=== PATIENT | male | born 1945 | race Caucasian/White ===

== ENCOUNTER 2016-12-11 08:55 | Inpatient (IN) | payer MEDICARE, OTHER ==
[~2016-12-11] VITALS: Ht 182.9 cm; Wt 135.4 kg
[2016-12-11] MEDS ORDERED: ZETI10TA5 PO (09:12)
[2016-12-11] MEDS ORDERED: CLOP75TA PO (09:12)
[2016-12-11] MEDS ORDERED: SPIR25TA PO (09:12)
[2016-12-11] MEDS ORDERED: METO25TA3 PO (09:12)
[2016-12-11] MEDS ORDERED: ASPI1TAB69 PO (09:20)
[2016-12-21] MEDS: LACTATED RINGER'S 1000 ML IV SCH (06:00)
[2016-12-21 06:04] VITALS: BP 163/97; PULSE 79; RESP 20; TEMP 97.5; O2SAT 94
[2016-12-21] MEDS ORDERED: METOPROLOL TARTRATE 25 MG TAB PO PRN (06:15)
[2016-12-21] MEDS ORDERED: INSULIN HUMAN REGULAR 1,000 UNITS/10 ML VIAL SQ PRN (06:15)
[2016-12-21] MEDS: SODIUM CHLORID 0.9% 500 ML IV SCH ×2 (06:15→22:55)
[2016-12-21] MEDS ORDERED: FAMOTIDINE 20 MG/2 ML VIAL ONE (06:36)
[2016-12-21] MEDS ORDERED: MIDAZOLAM HCL 2 MG/2 ML VIAL ONE (06:36)
[2016-12-21] MEDS ORDERED: DEXAMETHASONE SOD PHOS 4 MG/ML VIAL ONE (06:36)
[2016-12-21] MEDS ORDERED: METOCLOPRAMIDE HCL 10 MG/2 ML VIAL ONE (06:37)
[2016-12-21] MEDS ORDERED: ACETAMINOPHEN 1000 MG/100 ML VIAL IV ONE (06:37)
[2016-12-21] MEDS ORDERED: SODIUM CHLORIDE 0.9% IV SCH ×2 (06:45→09:00)
[2016-12-21] MEDS ORDERED: CHLORHEXIDINE GLUCONATE 4% SOLN 120 ML BTL TOP SCH (06:45)
[2016-12-21] MEDS ORDERED: ceFAZolin 2 GM PREMIX 50 ML IV SCH (06:45)
[2016-12-21] MEDS ORDERED: TRANEXAMIC ACID IV SCH ×2 (06:45→09:00)
[2016-12-21] MEDS ORDERED: TRANEXAMIC ACID INJ 0 MG in SODIUM CHLORIDE 0.9% INJ 100 ML IV SCH (07:00)
[2016-12-21] MEDS ORDERED: Post-op Orders (for Pharmacy) MISC XX ONE (07:00)
[2016-12-21] MEDS ORDERED: MORPHINE SULFATE 8 MG/ML INJ IV PUSH PRN (07:00)
[2016-12-21] MEDS ORDERED: BISACODYL 10 MG SUPP PR PRN (07:00)
[2016-12-21] MEDS ORDERED: ONDANSETRON HCL 4 MG/2 ML VIAL IVP PRN (07:00)
[2016-12-21] MEDS ORDERED: ZOLPIDEM TARTRATE 5 MG TAB PO PRN (07:00)
[2016-12-21] MEDS ORDERED: MAGNESIUM HYDROXIDE SUSP 30 ML CUP PO PRN (07:00)
[2016-12-21] MEDS ORDERED: SODIUM CHLORIDE 0.9% FLUSH 5 ML FLUSH IVF PRN (07:00)
[2016-12-21] MEDS ORDERED: EXPAREL PERI-ARTICULAR INJECTION (TOTAL VOL. 60 ML) P-ARTICULR SCH ×2 (07:00)
[2016-12-21] MEDS ORDERED: ACETAMINOPHEN/HYDROcodone 325 MG/7.5 MG TAB PO PRN ×2 (07:00)
[2016-12-21] MEDS ORDERED: GENTAMICIN SULFATE 80 MG/2 ML VIAL IRRIGATION ONE (07:59)
[2016-12-21] MEDS: ASPIRIN EC 81 MG TABEC PO SCH ×2 (09:00→20:20)
[2016-12-21] MEDS: METOPROLOL TARTRATE 25 MG TAB PO SCH (09:00)
[2016-12-21] MEDS: EZETIMIBE 10 MG TAB PO SCH (09:00)
[2016-12-21] MEDS: SPIRONOLACTONE 25 MG TAB PO SCH (09:00)
[2016-12-21] MEDS: SODIUM CHLORIDE 0.9% FLUSH 5 ML FLUSH IVF SCH ×2 (09:00→20:22)
[2016-12-21] MEDS ORDERED: PROPOFOL 200 MG/20 ML AMP IV ONE (09:14)
[2016-12-21] MEDS ORDERED: LACTATED RINGER'S 1000 ML INJ 2,000 ML IV ONE (09:15)
[2016-12-21] MEDS ORDERED: ONDANSETRON HCL 4 MG/2 ML VIAL IV PUSH ONE (09:15)
[2016-12-21] MEDS ORDERED: DO NOT ADM ANY ANTICOAGULANT DRUGS XX PRN (10:00)
[2016-12-21] MEDS ORDERED: *morphine SULFATE 8 MG/ML PERIprocedure ONLY ONE ×2 (10:12→10:25)
[2016-12-21] MEDS: KETOROLAC TROMETHAMINE 30 MG/ML (IVP) VIAL IVP SCH ×3 (10:36→20:22)
[2016-12-21] MEDS: LACTATED RINGER'S 1000 ML INJ 1,000 ML IV SCH ×2 (10:45→19:30)
--- NOTE | 2016-12-21 11:00 | RADRPT ---
EXAM DATE/TIME: 12/21/2016 10:19 [facility] COMPARISON: No previous studies available for comparison. INDICATIONS : Left hip replacement. MEDICAL HISTORY : None. SURGICAL HISTORY : Coronary artery stent. ENCOUNTER: Initial ACUITY: 1 day PAIN SCORE: Non-responsive. LOCATION: Left hip. FINDINGS: The patient is status post a total hip arthroplasty with a bipolar prosthesis. Prosthesis is well-sea tamanna. Alignment is anatomic. A fracture is not appreciated. CONCLUSION: Anatomic alignment. Julian Light MD FACR Board Certified Radiologist. This report was verified electronically.
[2016-12-21 11:20] VITALS: BP 120/77; PULSE 98; RESP 18; TEMP 95.4; O2SAT 96
--- NOTE | 2016-12-21 12:38 | PD.CONS ---
HPI Service [facility] Consult Requested By Reason for Consult medical management Primary Care Physician Arsen Alvarado MD Diagnoses: History of Present Illness patient is a 71 y/o male with history of osteoarthritis who underwent left total hip arthroplasty today. at the time of my evaluation he was resting comfortably with no distress. pain to the left hip was moderate in intensity. he denies any chest pain, sob or nausea at the time of my evaluation. d/w the RN at the bedside. Review of Systems Constitutional: DENIES: Fever, Weight loss, Chills, Night Sweats Eyes: DENIES: Blurred vision, Diplopia, Vision loss, Double Vision Ears, nose, mouth, throat: DENIES: Tinnitus, Vertigo, Throat pain, Epistaxis Respiratory: DENIES: Apneas, Cough, Snoring, Wheezing, Hemoptysis, Sputum production, Shortness of breath Cardiovascular: DENIES: Chest pain, Palpitations, Syncope, Dyspnea on Exertion , PND, Lower Extremity Edema, Orthopnea, Claudication Gastrointestinal: DENIES: Abdominal pain, Black stools, Bloody stools, Constipation, Diarrhea, Nausea, Vomiting, Difficulty Swallowing, Anorexia Genitourinary: DENIES: Urinary frequency, Urgency, Hematuria, Dysuria Musculoskeletal: COMPLAINS OF: Joint pain (left hip.), DENIES: Muscle aches, Stiffness, Joint Swelling Integumentary: DENIES: Rash Neurologic: DENIES: Abnormal gait, Headache, Localized weakness, Paresthesias, Seizures, Speech Problems, Tremor, Poor Balance Psychiatric: DENIES: Anxiety, Confusion, Mood changes, Depression, Hallucinations, Agitation, Suicidal Ideation, Homicidal Ideation, Delusions Past Family Social History Allergies: Coded Allergies: Lipitor (Verified Adverse Reaction, Severe, muscle aches and liver function changes, 12/21/16) Past Medical History CAD osteoarthritis Past Surgical History cardiac stent placement hernia repair Reported Medications aspirin plavix zetia aldactone metoprolol Active Ordered Medications Current Medications Lactated Ringer's 1,000 ml @ 30 mls/hr Q24H IV Last administered on 12/21/16t 06:00; Start 12/21/16 at 06:15 Sodium Chloride (NS 500 ml Inj) 500 ml @ 30 mls/hr [id number] IV ; Start 12/21/16 at 06:15; Stop 12/22/16 at 06:14 Insulin Human Regular (NovoLIN R INJ) See Protocol Table ... UNSCH X1 PRN SQ SEE PROTOCOL; Start 12/21/16 at 06:15; Stop 12/22/16 at 06:14 Metoprolol Tartrate 25 mg 25 mg UNSCH X1 PRN PO SEE LABEL COMMENTS; Start 12/21 at 06:15; Stop 12/22/16 at 06:14 Bupivacaine Liposome/Sodium Chloride (Exparel Pf 1.3% Inj/NS Inj) 60 ml @ 120 mls/hr ONCE P-ARTICULR ; Start 12/21/16 at 07:00; Stop 12/21/16 at 13:00 Chlorhexidine Gluconate 1 applic 1 applic ONCE TOP ; Start 12/21/16 at 06:45; Stop 12/24/16 at 06:44 Cefazolin Sodium/ Dextrose 50 ml @ 100 mls/hr KETTLE HAND IV Last administered on 12/21/16t 07:13; Start 12/21/16 at 06:45; Stop 12/24/16 at 06:44 Tranexamic Acid 1283 mg/Sodium Chloride 112.83 ml @ 200 mls/ hr ONCE IV Last administered on 12/21/16 07:05; Start 12/21/16 at 06:45; Stop 12/22/16 at 06:44 Tranexamic Acid/ Sodium Chloride (Cyklokapron Inj/ NS Inj) 112.83 ml @ 200 mls / hr ONCE IV Last administered on 12/21/16t 10:15; Start 12/21/16 at 09:00; Stop 12/22/16 at 08:59 Famotidine (Pepcid Inj) 20 mg STK-MED ONCE .ROUTE ; Start 12/21/16 at 06:36; Stop 12/21/16 at 06:37; Status DC Midazolam HCl (Versed Inj) 2 mg STK-MED ONCE .ROUTE ; Start 12/21/16 at 06:36; Stop 12/21/16 at 06:37; Status DC Dexamethasone Sodium Phosphate (Decadron Inj) 4 mg STK-MED ONCE .ROUTE ; Start 12/21/16 at 06:36; Stop 12/21/16 at 06:37; Status DC Metoclopramide HCl (Reglan Inj) 10 mg STK-MED ONCE .ROUTE ; Start 12/21/16 at 06 :37; Stop 12/21/16 at 06:38; Status DC Acetaminophen 1000 mg 1,000 mg STK-MED ONCE IV ; Start 12/21/16 at 06:37; Stop 12/21/16 at 06:38; Status DC Lactated Ringer's (Lr 1000 ml Inj) 1,000 ml @ 80 mls/hr [id number] IV Last administered on 12/21/16 10:45; Start 12/21/16 at 07:00 IV Flush (NS Flush) 2 ml UNSCH PRN IVF FLUSH AFTER USING IV ACCESS; Start 12/21 at 07:00 IV Flush 2 ml 2 ml BID IVF ; Start 12/21/16 at 09:00 Cefazolin Sodium/ Sodium Chloride (Ancef Inj/NS Inj) 100 ml @ 200 mls/hr Q6H IV ; Start 12/21/16 at 13:00; Stop 12/22/16 at 01:29 Miscellaneous Information (Post-op Orders (for Pharmacy)) STAT ONCE XX ; Start 12/21/16 at 07:00; Stop 12/21/16 at 08:19; Status DC Morphine Sulfate (Morphine Inj) 4 mg Q3H PRN IV PUSH BREAKTHROUGH PAIN; Start 12/21/16 at 07:00 Acetaminophen/ Hydrocodone Bitart (Ashley 7.5-325 Mg) 1 tab Q4H PRN PO PAIN LESS THAN 5 ON SCALE; Start 12/21/16 at 07:00 Acetaminophen/ Hydrocodone Bitart (Ashley 7.5-325 Mg) 2 tab Q4H PRN PO PAIN SCALE 5 TO 10; Start 12/21/16 at 07:00 Ketorolac Tromethamine 15 mg 15 mg Q6H IVP Last administered on 12/21/16 10:36 ; Start 12/21/16 at 09:00; Stop 12/23/16 at 03:01 Tranexamic Acid/ Sodium Chloride (Cyklokapron Inj/ NS Inj) 100 ml @ 200 mls/hr UNSCH IV Last administered on 12/21/16 07:37; Start 12/21/16 at 07:00; Stop at 07:29; Status UNV Ondansetron HCl (Zofran Inj) 4 mg Q6H PRN IVP NAUSEA OR VOMITING; Start at 07:00 Docusate Sodium (Colace) 100 mg BID PO ; Start 12/22/16 at 21:00 Zolpidem Tartrate (Ambien) 5 mg HS PRN PO SLEEP; Start 12/21/16 at 07:00 Bisacodyl (Dulcolax Supp) 10 mg DAILY PRN SD CONSTIPATION; Start 12/21/16 at 07 :00 Magnesium Hydroxide (Milk Of Magnesia Liq) 30 ml DAILY PRN PO CONSTIPATION; Start 12/21/16 at 07:00 Aspirin (Ecotrin Ec) 81 mg BID PO ; Start 12/21/16 at 09:00 EZETIMIBE (Zetia) 10 mg DAILY PO ; Start 12/21/16 at 09:00 Metoprolol Tartrate (Lopressor) 25 mg DAILY PO ; Start 12/21/16 at 09:00 Spironolactone (Aldactone) 25 mg DAILY PO ; Start 12/21/16 at 09:00 Gentamicin Sulfate (Gentamicin Inj) 240 mg STK-MED ONCE IRRIGATION Last administered on 12/21/16 07:59; Start 12/21/16 at 07:59; Stop 12/21/16 at 08:00 ; Status DC Fentanyl Citrate (fentaNYL INJ) 100 mcg STK-MED ONCE .ROUTE ; Start 12/21/16 at 10:11; Stop 12/21/16 at 10:12; Status DC Morphine Sulfate (*morphine INJ PERIprocedure ONLY) 8 mg STK-MED ONCE .ROUTE Last administered on 12/21/16 10:12; Start 12/21/16 at 10:12; Stop 12/21/16 at 10:13; Status DC Morphine Sulfate (*morphine INJ PERIprocedure ONLY) 8 mg STK-MED ONCE .ROUTE Last administered on 12/21/16 10:25; Start 12/21/16 at 10:25; Stop 12/21/16 at 10:26; Status DC Miscellaneous Information ALL NURSING DEPARTME... UNSCH PRN XX SEE LABEL COMMENTS; Start 12/21/16 at 10:00; Stop 12/22/16 at 09:59 Family History not relevant to this consult. Social History former smoker. Physical Exam Vital Signs Vital Signs Date Time Temp Pulse Resp B/P Pulse Ox O2 Delivery O2 Flow Rate FiO2 12/21/16 11:00 97.5 68 16 140/83 96 Nasal Cannula 3 12/21/16 10:45 69 15 142/84 95 Nasal Cannula 3 12/21/16 10:30 15 12/21/16 10:30 75 15 146/85 94 Nasal Cannula 3 12/21/16 10:17 15 12/21/16 10:15 78 15 150/88 98 Nasal Cannula 4 12/21/16 10:00 97.7 92 15 145/94 97 Nasal Cannula 4 12/21/16 06:04 97.5 79 20 163/97 94 Physical Exam GENERAL: This is a well-nourished, well-developed patient, in no apparent distress. HEAD: Atraumatic. Normocephalic. No temporal or scalp tenderness. EYES: Pupils equal round and reactive. Extraocular motions intact. No scleral icterus. No injection or drainage. ENT: Nose without bleeding, purulent drainage or septal hematoma. Throat without erythema, tonsillar hypertrophy or exudate. Uvula midline. Airway patent. NECK: Trachea midline. No JVD or lymphadenopathy. Supple, nontender, no meningeal signs. CARDIOVASCULAR: Regular rate and rhythm without murmurs, gallops, or rubs. RESPIRATORY: Clear to auscultation. Breath sounds equal bilaterally. No wheezes , rales, or rhonchi. GASTROINTESTINAL: Abdomen soft, non-tender, nondistended. No hepato-splenomegaly , or palpable masses. No guarding. MUSCULOSKELETAL: Extremities without clubbing, cyanosis, or edema. No joint tenderness, effusion, or edema noted. No calf tenderness. NEUROLOGICAL: Awake and alert. Cranial nerves II through XII intact. Motor and sensory grossly within normal limits. Five out of 5 muscle strength in all muscle groups. Normal speech. Laboratory Laboratory Tests Test 12/21/16 06:00 Blood Type O POSITIVE Antibody Screen NEGATIVE Blood Bank Comment Imaging Last Impressions Hip X-Ray 12/21/16 0000 Signed Impressions: Service Date/Time: Wednesday, December 21, 2016 10:19 - CONCLUSION: Anatomic alignment. Julian Light MD Assessment and Plan Assessment and Plan A/P - osteoarthritis of the left hip- s/p left total hip arthroplasty continue with pain control and PT- management per ortho -CAD; resumed aspirin, zetia and metoprolol- resume Plavix when ok with ortho -DVT prophylaxis; on aspirin- per ortho thank you for the consult. Discussed Condition With the patient and RN. Alba Winston MD Dec 21, 2016 12:38
[2016-12-21 16:00] VITALS: BP 139/90; PULSE 71; RESP 18; TEMP 95.9; O2SAT 95
[2016-12-21 20:00] VITALS: BP 141/73; PULSE 84; RESP 16; TEMP 97; O2SAT 93
[2016-12-22] VITALS: BP 122/65; PULSE 76; RESP 16; TEMP 97.6; O2SAT 93
[2016-12-22] MEDS: LACTATED RINGER'S 1000 ML IV SCH (00:21)
[2016-12-22] MEDS: KETOROLAC TROMETHAMINE 30 MG/ML (IVP) VIAL IVP SCH ×3 (02:09→10:05)
[2016-12-22 04:00] VITALS: BP 137/73; PULSE 77; RESP 16; TEMP 97.2; O2SAT 93
[2016-12-22 06:08] LABS: HEMATOCRIT 38.2 % (39.0-51.0); REVIEW FLAG FINAL
--- NOTE | 2016-12-22 07:29 | PD.ORT.PN ---
Subjective Post Op Day #: 1 Subjective Remarks He is doing very well. Aside from walking with PT, he walked with the nurses around the circuit of the floor and again, with his up and down the sun. He has not used any analgesics. There is just an ache. Distance Walked 570 feet with PT. Objective Vitals Vital Signs Date Time Temp Pulse Resp B/P Pulse Ox O2 Delivery O2 Flow Rate FiO2 12/22/16 04:00 97.2 77 16 137/73 93 12/22/16 00:00 97.6 76 16 122/65 93 12/21/16 20:00 Room Air 12/21/16 20:00 97.0 84 16 141/73 93 12/21/16 16:00 95.9 71 18 139/90 95 12/21/16 11:20 95.4 98 18 120/77 96 12/21/16 11:00 97.5 68 16 140/83 96 Nasal Cannula 3 12/21/16 10:45 69 15 142/84 95 Nasal Cannula 3 12/21/16 10:30 15 12/21/16 10:30 75 15 146/85 94 Nasal Cannula 3 12/21/16 10:17 15 12/21/16 10:15 78 15 150/88 98 Nasal Cannula 4 12/21/16 10:00 97.7 92 15 145/94 97 Nasal Cannula 4 I/O 12/21/16 12/21/16 12/21/16 12/22/16 12/22/16 12/22/16 07:00 15:00 23:00 07:00 15:00 23:00 Intake Total 3000 ml 240 ml 240 ml Output Total 500 ml Balance 2500 ml 240 ml 240 ml Intake Oral 1200 ml 240 ml 240 ml IV Total 100 ml Other 1700 ml Output Estimated Blood Loss 500 ml # Voids 2 1 2 # Bowel Movements 0 0 0 Result Diagram: 12/22/16 0539 Imaging Last 72 hours Impressions Hip X-Ray 12/21/16 0000 Signed Impressions: Service Date/Time: Wednesday, December 21, 2016 10:19 - CONCLUSION: Anatomic alignment. Julian Light MD Objective Remarks He is OOB walking with and without the walker, FWB. The dressing is dry and intact. His neurovascular status is intact. Assessment & Plan Ortho Post Op Day #: 1 Problem List: (1) Status post total replacement of left hip Plan: Continue postop care and PT. Assessment and Plan Condition: Good. Orthopaedically stable. DVT prophylaxis: Sequentials, TEDs, resume ASA and Plavix. Discharge plans: Home with [facility]. Has appointment. Rx: Tramadol 50 Padmini Cyr MD (Charles) Dec 22, 2016 07:29
[2016-12-22] MEDS: LACTATED RINGER'S 1000 ML INJ 1,000 ML IV SCH (08:00)
--- NOTE | 2016-12-22 08:11 | HHI.FF ---
Face to Face Verification Diagnosis: (1) Status post total replacement of left hip Physical Therapy Gait training Hip: Total hip, Protocol: Left, Posterior hip precautions, Progress to weight bearing Canvas Knee Splint: When in bed & 2 pillows btw thighs (Use for 2 months.) Left LE Weight Bearing: WB as tolerated Left LE Range of Motion: Active ROM Nursing Nursing: Dressing changes Dressing Changes: Daily dressing change, Coverderm/Primapore Additional Instructions Remove steristrips on postop day 14. I have seen patient Erwin Clayton on 12/22/16. My clinical findings support the need for the requested home health care services because: Ltd mobility - disease progression Limited ability to care for self High risk of falls I certify that my clinical findings support that this patient is homebound because: Post-op weakness Unsteady gait/balance Unsafe to leave home unassisted Padmini Cyr MD ([facility]) Dec 22, 2016 08:11
[2016-12-22] MEDS ORDERED: ULTR50TA5 PO (08:12)
[2016-12-22] MEDS ORDERED: traMADol HCL 50 MG TAB PO PRN (08:15)
[2016-12-22 08:20] VITALS: BP 140/75; PULSE 96; RESP 18; TEMP 96.5; O2SAT 94
[2016-12-22] MEDS: METOPROLOL TARTRATE 25 MG TAB PO SCH (08:34)
[2016-12-22] MEDS: SODIUM CHLORIDE 0.9% FLUSH 5 ML FLUSH IVF SCH (08:34)
[2016-12-22] MEDS: EZETIMIBE 10 MG TAB PO SCH (08:35)
[2016-12-22] MEDS: ASPIRIN EC 81 MG TABEC PO SCH (08:36)
[2016-12-22] MEDS: SPIRONOLACTONE 25 MG TAB PO SCH (08:36)
[2016-12-22] MEDS ORDERED: DOCUSATE SODIUM 100 MG CAP PO SCH (21:00)
--- NOTE | 2016-12-23 10:03 | MP ---
cc: Padmini LINDQUIST M.D. ([facility]) DATE OF SURGERY: 12/21/2016 PREOPERATIVE DIAGNOSIS Primary osteoarthritis left hip. POSTOPERATIVE DIAGNOSIS Primary osteoarthritis, left hip. OPERATION PERFORMED Left total hip arthroplasty with [place] prosthesis. SURGEON Padmini Lindquist MD INVESTMENT SPECIALIST JAZMÍN Diaz ANESTHESIA Spinal with supplemental local. INDICATIONS AND FINDINGS This 71-year-old man has a 5-year history of progressive worsening of left hip pain with ambulation tolerance of one half mile. He has difficulty with stairs and standing from a seated position. He has difficulty to bend over because of pain in the hip. He has not been responding to anti-inflammatory agents, activity modification, exercise, ambulatory aids. He is now unable to take anti-inflammatory agents because of the use of Plavix. Physical findings showed limitation of motion with a clearly antalgic gait on the left. X-rays showed loss of articular cartilage to [id number] with osteophytes in the superior aspect of the acetabulum and femoral head and asymmetric femoral head. Operative findings are consistent with the radiographic findings. The prosthesis used was a Javon prosthesis with the acetabulum being a Tritanium hemispherical cluster cup size 56 mm outer diameter with a 36 mm inner diameter 0 degree liner of X3 polyethylene. The femoral component was an Accolade II femoral stem size 7 x 132 degree neck angle. The femoral head was a 36 mm outer diameter offset, 5 mm LFIT cobalt chromium head. PROCEDURE The patient was brought to the clean-air operating suite and a spinal anesthetic was administered. He was placed in a lateral position on a Biomet lateral positioner with the left hip up. The left hip was then prepped with alcohol, Hibiclens and Chloraprep and draped in the usual manner with the hip draped free. On arrival in the operating room he received prophylactic antibiotic in the form of Ancef and also received tranexamic acid. After appropriate time-out procedure an incision was then made centered over the posterolateral aspect of the greater trochanter, extending approximately 15 cm. The incision was deepened through the subcutaneous tissues to the fascia asaf and gluteus fascia which were incised in line with their fibers in the skin incision. The Charnley retractor was placed with towels. Hemostasis was achieved throughout the procedure with electrocautery. The hip was internally rotated. The external rotators were released off the posterior aspect of the greater trochanter along with posterior capsule which was released with a posteriorly based flap. The hip was dislocated. The femoral neck was transected approximately 20 mm from the upper portion of the lesser trochanter. The femur was then prepared with a box osteotome followed by canal finding curette and then broaches starting at size zero and going up to size eight. At size eight calcar planing was carried out. The remainder of the rim was trimmed with rongeur. The hip was then repositioned. The retractors were placed about the acetabulum. The soft tissues were cleaned from the acetabulum. Serial reaming started at 47 mm and went in 1-mm increments up to size 56. At size 56 a trial prosthesis was impacted into place. This seated appropriately. This was then removed and the actual Tritanium cluster cup shell was impacted into place. Drill holes were made through two of the fenestrations and sounded. Appropriate size screws were inserted. The liner was then inserted. The rim of the acetabulum showed no functional osteophyte irregularity. Local anesthetic was administered about the acetabulum with Exparel. This was also done in the anterior aspect of the femoral neck. A trial reduction was carried out with an -5 mm neck length. This was too long and therefore the broach was removed. Broaching was then carried out down to size seven again. Calcar was planed down to the size seven stem. A trial reduction was then carried out with a -5 mm neck length and this was appropriate. There was excellent stability with appropriate leg length and no pistoning. The motion was excellent. The trial prosthesis was removed. The broach was removed. The medullary canal was cleaned with pulse lavage. The remainder of the hip was injected with the rest of the Exparel during this process. The femoral component was impacted into place and seated appropriately. This was a size 7 x 132 degree Accolade II stem. When this was seated a trial reduction was carried out with a -5 mm neck length stem. This was appropriate in length and stability without pistoning. The trunnion was then cleaned and dried. The 36 mm diameter LFIT head was then impacted onto the trunnion. This seated appropriately. The hip was reduced. There was excellent motion. There is excellent stability. There was no pistoning. The leg lengths appeared appropriate. The capsule and external rotators were repaired to the posterior aspect of the greater trochanter using transosseous sutures with #1 Vicryl and using a Krackow technique for the soft tissues. The fascia asaf and gluteus fascia were repaired after verifying the integrity of the sciatic nerve. This was done with #1 Vicryl interrupted [id number] sutures. The subcutaneous tissues were closed with 2-0 Vicryl interrupted simple sutures with buried knots. The skin was closed with continuous subcuticular closure of 4-0 Monocryl. The wound was then dressed with Steri-Strips followed by dry dressing and Medipore compression hip dressing. He was placed into a knee immobilizer on the affected side. He was then transferred from the operating room to the recovery room in satisfactory condition having tolerated the procedure well. COUNTS Counts were correct. SPECIMENS None. ESTIMATED BLOOD LOSS 500 mL. MD JIMMY Steel/CHARMAINE /10:01 AM /9:29 AM
== END 2016-12-22 10:55 | disposition home health service (06) | DRG 470 ==
LOC: HSDI 12-21 05:27 → N06A 12-21 11:24
PROVIDERS: ADMIT Orthopaedic Surgery; ATTEND Orthopaedic Surgery
PROC: 0SRB02A Replacement of Left Hip Joint with Metal on Polyethylene Synthetic Substitute, Uncemented, Open Approach (ICD-10-PCS; principal; 2016-12-21 06:48)
DX: M16.12 Unilateral primary osteoarthritis, left hip (principal); I25.10 Atherosclerotic heart disease of native coronary artery without angina pectoris; Z95.5 Presence of coronary angioplasty implant and graft; I12.9 Hypertensive chronic kidney disease with stage 1 through stage 4 chronic kidney disease, or unspecified chronic kidney disease; N18.9 Chronic kidney disease, unspecified; Z87.891 Personal history of nicotine dependence
CPT/HCPCS: 73502; 76937; 85014; 85018; 86850; 86900; 86901; 94150; C1776; J0131; J0690; J1100; J1580; J1885; J2250; J2270; J2405; J2765; J3010; J7120; L1830

== ENCOUNTER → 2016-12-11 | Outpatient (CLI) | payer MEDICARE, OTHER ==
[~2016-12-11] MED LIST: ASPI1TAB69 PO; ASPI81 PO; CLOP75 PO; CLOP75TA PO; LIVA1TAB PO; METO25TA3 PO; METO25TA6 PO; SPIR25TA PO; ULTR50TA5 PO; ZETI10TA5 PO
[2016-12-11 09:26] LABS: HEMATOCRIT 47.9 % (39.0-51.0); MEAN CELL VOLUME 90.9 FL (80.0-100.0); MEAN CORPUSCULAR HEMOGLOBIN 30.4 PG (27.0-34.0); MEAN CORPUSCULAR HGB CONC 33.4 % (32.0-36.0); PLATELET COUNT 223 TH/MM3 (150-450); RED BLOOD COUNT 5.27 MIL/MM3 (4.50-5.90); REVIEW FLAG FINAL; WHITE BLOOD COUNT 5.9 TH/MM3 (4.0-11.0)
[2016-12-11 09:31] LABS: BLOOD, URINE NEG (NEG); COMMENT (UR) CULT NOT INDICATED; CULTURE IF INDICATED CULT NOT INDICATED; GLUCOSE,URINE NEG (NEG); KETONE, URINE NEG (NEG); MUCUS URINE FEW /lpf (OCC); NITRITE,URINE NEG (NEG); SQUAMOUS EPITHELIAL CELL URINE <1 /hpf (0-5); URINE COLOR YELLOW (YELLW/STRAW)
[2016-12-11 09:35] LABS: PROTHROMBIN TIME - PATIENT 10.7 SEC (9.8-11.6)
[2016-12-11 09:44] LABS: BICARBONATE 26.4 MEQ/L (21.0-32.0); POTASSIUM 4.3 MEQ/L (3.5-5.1)
== END ==
LOC: CPRE 08:50
PROVIDERS: ATTEND Orthopaedic Surgery
DX: Z01.812 Encounter for preprocedural laboratory examination (principal); M79.609 Pain in unspecified limb; I25.10 Atherosclerotic heart disease of native coronary artery without angina pectoris; M16.12 Unilateral primary osteoarthritis, left hip
CPT/HCPCS: 36415; 80048; 81001; 85027; 85610; 85730

== ENCOUNTER 2017-10-03 21:36 | Observation (INO) | payer MEDICARE, OTHER ==
[~2017-10-03] VITALS: Ht 182.9 cm; Wt 120.0 kg
[~2017-10-03 21:36] MED LIST changes: -ASPI81 PO; -CLOP75 PO; +EZET10 PO; -LIVA1TAB PO; -METO25TA6 PO; +TRAM50 PO; -ULTR50TA5 PO; -ZETI10TA5 PO
[2017-10-03 21:38] VITALS: BP 150/71; PULSE 87; RESP 20; O2SAT 94
[2017-10-03] MEDS ORDERED: ASPI-516 CHEW (21:51)
[2017-10-03 21:52] VITALS: PULSE 88; RESP 17; TEMP 98.1; O2SAT 97
[2017-10-03 22:00] VITALS: BP 158/74; PULSE 78; RESP 18; O2SAT 93
[2017-10-03] MEDS ORDERED: ASPIRIN 325 MG TAB PO ONE (22:00)
[2017-10-03] MEDS ORDERED: NITROGLYCERIN 0.4 MG SL 25 TABS/BTL SL ONE ×2 (22:00→23:00)
[2017-10-03 22:09] LABS: AUTOMATED NEUTROPHIL # 5.1 TH/MM3 (1.8-7.7); BASOPHIL # 0.1 TH/MM3 (0-0.2); BASOPHIL % 1.2 % (0.0-2.0); EOSINOPHIL # 1.3 TH/MM3 (0-0.4); EOSINOPHIL % 14.8 % (0.0-4.0); HEMATOCRIT 43.8 % (39.0-51.0); HEMOGLOBIN 14.9 GM/DL (13.0-17.0); LYMPH % 15.8 % (9.0-44.0); LYMPHOCYTE # 1.4 TH/MM3 (1.0-4.8); MEAN CELL VOLUME 88.3 FL (80.0-100.0); MEAN PLATELET VOLUME 7.1 FL (7.0-11.0); MONO % 8.8 % (0.0-8.0); MONOCYTE # 0.8 TH/MM3 (0-0.9); NEUT % 59.4 % (16.0-70.0); PLATELET COUNT 261 TH/MM3 (150-450); RED BLOOD COUNT 4.96 MIL/MM3 (4.50-5.90); RED CELL DISTRIBUTION WIDTH 13.4 % (11.6-17.2); WHITE BLOOD COUNT 8.6 TH/MM3 (4.0-11.0)
--- NOTE | 2017-10-03 22:20 | RADRPT ---
EXAM DATE/TIME: 10/03/2017 22:03 [facility] COMPARISON: CHEST SINGLE AP, November 13, 2015, 7:08. INDICATIONS : Chest pain. Patient was recently diagnosed with pneumonia at an Urgent Care center. MEDICAL HISTORY : None. SURGICAL HISTORY : Coronary artery stent. ENCOUNTER: Initial ACUITY: 1 day PAIN SCORE: 5/10 LOCATION: Bilateral chest FINDINGS: A single view of the chest demonstrates focal airspace disease in the right mid lung and base. Left l luz is clear. The cardiomediastinal contours are unremarkable. Osseous structures are intact. CONCLUSION: Right midlung and basilar airspace disease. James Esparza MD on October 03, 2017 at 22:16 Board Certified Radiologist. This report was verified electronically.
[2017-10-03 22:25] LABS: ALT (GPT) 32 U/L (12-78)
--- NOTE | 2017-10-03 22:26 | PD ---
HPI Chief Complaint: Chest Pain Time Seen by Provider: 21:43 Travel History International Travel<30 days: No Contact w/Intl Traveler<30days: No Traveled to known affect area: No History of Present Illness HPI 72-year-old male that presents to the ED for evaluation of chest pain. Per patient his been going on for about an hour. Per patient he does have a significant history of ACS having had a stent about [address] Snell. Per patient he falls with [facility] for cardiology. He's had no issues since. He states that he does have a history of high cholesterol, high blood pressure and takes medications for both except for the cholesterol which he does not take because he has a lot of side effects from them. He states been compliant with the metoprolol. She denies taking any blood thinners because of side effects from the blood thinner. He states that the chest pain feels like he "is belching " per patient the pain feels somewhat similar with the exception but is not in the same location as the previous one. Per patient is midsternal and epigastric. Does not radiate. No back pain. No abdominal pain. He does state having some recent diagnosis of pneumonia and had been treated for it with resolution of the symptoms. Denies any cough or runny nose. Denies any anything that the pain started. He does have an allergy to atorvastatin. He has not taken anything for the pain. Per patient pain is 7 out of 10. No other medical issues at this time. No nausea or vomiting. No lightheadedness. No blurred vision or double vision. PFSH Past Medical History Asthma: No Heart Rhythm Problems: No Cancer: No Cardiovascular Problems: Yes (STENT) High Cholesterol: No Chest Pain: Yes Congestive Heart Failure: No COPD: No Coronary Artery Disease: Yes Diabetes: No Diminished Hearing: No Endocrine: No Genitourinary: No Hepatitis: No Hiatal Hernia: No Immune Disorder: No Musculoskeletal: Yes (LT HIP PAIN, HX. LT CLAVICLE FX) Neurologic: No Psychiatric: No Reproductive: No Respiratory: Yes (PULMONARY EMBOLISM AFTER LT. CLAVICLE FX.) Sleep Apnea: No Thyroid Disease: No Tetanus Vaccination: Unknown Past Surgical History Abdominal Surgery: Yes (RT INGUINAL HERNIA REPAIR) AICD: No Body Medical Devices: CARDIAC STENT Cardiac Surgery: Yes (STENTS) Ear Surgery: No Endocrine Surgery: No Eye Surgery: No Genitourinary Surgery: Yes (CIRCUMCISION) Joint Replacement: Yes (left hip) Oral Surgery: Yes (T/A) Pacemaker: No Thoracic Surgery: No Social History Alcohol Use: No Tobacco Use: No Substance Use: No Allergies-Medications (Allergen,Severity, Reaction): Coded Allergies: atorvastatin (Unverified Adverse Reaction, Severe, muscle aches and liver function changes, 10/03/17) Reported Meds & Prescriptions Reported Meds & Active Scripts Active Reported Aspirin 81 Mg Chew 81 Mg CHEW DAILY Metoprolol Tartrate 25 Mg Tab 25 Mg PO DAILY Review of Systems Except as stated in HPI: all other systems reviewed are Neg Physical Exam Narrative GENERAL: SKIN: Warm and dry. HEAD: Atraumatic. Normocephalic. EYES: Pupils equal and round. No scleral icterus. No injection or drainage. ENT: No nasal bleeding or discharge. Mucous membranes pink and moist. Tongue is midline. No uvula deviation. NECK: Trachea midline. No JVD. CARDIOVASCULAR: Regular rate and rhythm. No murmurs, S3, S4. RESPIRATORY: No accessory muscle use. Clear to auscultation. Breath sounds equal bilaterally. GASTROINTESTINAL: Abdomen soft, non-tender, nondistended. Hepatic and splenic margins not palpable. MUSCULOSKELETAL: Extremities without clubbing, cyanosis, or edema. No obvious deformities. Full range of motion of the upper and lower extremities bilaterally. 2+ pulses bilaterally. NEUROLOGICAL: Awake and alert. No obvious cranial nerve deficits. Motor grossly within normal limits. Five out of 5 muscle strength in the arms and legs. Normal speech. PSYCHIATRIC: Appropriate mood and affect; insight and judgment normal. Data Data Last Documented VS Vital Signs Date Time Temp Pulse Resp B/P (MAP) Pulse Ox O2 Delivery O2 Flow Rate FiO2 10/03/17 21:56 84 97 Room Air 10/03/17 21:52 98.1 17 Orders Orders Electrocardiogram (10/03/17 21:53) Complete Blood Count With Diff (10/03/17 21:53) Comprehensive Metabolic Panel (10/03/17 21:53) Ckmb (Isoenzyme) Profile (10/03/17 21:53) Troponin I (10/03/17 21:53) Prothrombin Time / Inr (Pt) (10/03/17 21:53) Act Partial Throm Time (Ptt) (10/03/17 21:53) Lipase (10/03/17 21:53) Magnesium (Mg) (10/03/17 21:53) Chest, Single Ap (10/03/17 21:53) Iv Access Insert/Monitor (10/03/17 21:53) Ecg Monitoring (10/03/17 21:53) Oximetry (10/03/17 21:53) Aspirin (Aspirin) (10/03/17 22:00) Nitroglycerin Sl (Nitrostat Sl) (10/03/17 22:00) CKMB (10/03/17 21:39) CKMB% (10/03/17 21:39) Acetaminophen (Tylenol) (10/03/17 22:45) Nitroglycerin Sl (Nitrostat Sl) (10/03/17 23:00) Labs Laboratory Tests Test 10/03/17 21:39 White Blood Count 8.6 TH/MM3 Red Blood Count 4.96 MIL/MM3 Hemoglobin 14.9 GM/DL Hematocrit 43.8 % Mean Corpuscular Volume 88.3 FL Mean Corpuscular Hemoglobin 30.0 PG Mean Corpuscular Hemoglobin Concent 34.0 % Red Cell Distribution Width 13.4 % Platelet Count 261 TH/MM3 Mean Platelet Volume 7.1 FL Neutrophils (%) (Auto) 59.4 % Lymphocytes (%) (Auto) 15.8 % Monocytes (%) (Auto) 8.8 % Eosinophils (%) (Auto) 14.8 % Basophils (%) (Auto) 1.2 % Neutrophils # (Auto) 5.1 TH/MM3 Lymphocytes # (Auto) 1.4 TH/MM3 Monocytes # (Auto) 0.8 TH/MM3 Eosinophils # (Auto) 1.3 TH/MM3 Basophils # (Auto) 0.1 TH/MM3 CBC Comment DIFF FINAL Differential Comment Prothrombin Time 10.2 SEC Prothromb Time International Ratio 1.0 RATIO Activated Partial Thromboplast Time 28.0 SEC Blood Urea Nitrogen 20 MG/DL Creatinine 1.38 MG/DL Random Glucose 102 MG/DL Total Protein 7.9 GM/DL Albumin 3.6 GM/DL Calcium Level 8.6 MG/DL Magnesium Level 2.2 MG/DL Alkaline Phosphatase 112 U/L Aspartate Amino Transf (AST/SGOT) 44 U/L Alanine Aminotransferase (ALT/SGPT) 32 U/L Total Bilirubin 0.6 MG/DL Sodium Level 139 MEQ/L Potassium Level 3.9 MEQ/L Chloride Level 105 MEQ/L Carbon Dioxide Level 26.4 MEQ/L Anion Gap 8 MEQ/L Estimat Glomerular Filtration Rate 51 ML/MIN Total Creatine Kinase 191 U/L Creatine Kinase MB 2.4 NG/ML Troponin I LESS THAN 0.02 NG/ML Lipase 200 U/L MDM Medical Decision Making Medical Screen Exam Complete: Yes Emergency Medical Condition: Yes Medical Record Reviewed: Yes Interpretation(s) CBC & BMP Diagram 10/03/17 21:39 Total Protein 7.9, Albumin 3.6, Calcium Level 8.6, Magnesium Level 2.2, Alkaline Phosphatase 112, Aspartate Amino Transf (AST/SGOT) 44 H, Alanine Aminotransferase (ALT/SGPT) 32, Total Bilirubin 0.6 Last Impressions Chest X-Ray 10/03/172152 Signed Impressions: Service Date/Time: Tuesday, October 03, 2017 22:03 - CONCLUSION: Right midlung and basilar airspace disease. James Esparza MD troponin and CKMB negative Coags WNL EKG shows sinus rhythm with no sign of acute ischemia or arrhythmia noted by me and attending. Differential Diagnosis CAD versus angina versus unstable angina versus and STEMI versus pneumonia versus pancreatitis versus ACS versus a typical chest pain Narrative Course 72-year-old male that presents to the ED for evaluation of chest pain. Patient was properly examined and was found to have signs and symptoms concerning for ACS. Labs and imaging were ordered. Patient was given aspirin as well as nitroglycerin. Labs and imaging showed no sign of acute at this time. Patient still having 4 out of 10 pain. Patient was given 1 more nitroglycerin. Commendations for admission for further evaluation of this and patient agrees with this. James Cortez Oct 03, 2017 22:26
[2017-10-03 22:30] LABS: ALKALINE PHOSPHATASE 112 U/L (45-117); TOTAL BILIRUBIN ADULT 0.6 MG/DL (0.2-1.0); TOTAL PROTEIN 7.9 GM/DL (6.4-8.2); TROPONIN I LESS THAN 0.02 NG/ML (0.02-0.05)
[2017-10-03 22:35] LABS: ALBUMIN 3.6 GM/DL (3.4-5.0); AST (GOT) 44 U/L (15-37); BICARBONATE 26.4 MEQ/L (21.0-32.0); BLOOD UREA NITROGEN 20 MG/DL (7-18); CALCIUM 8.6 MG/DL (8.5-10.1); CHLORIDE 105 MEQ/L (98-107); CREATININE 1.38 MG/DL (0.60-1.30); GLOMERULAR FILTRATION RATE 51 ML/MIN (>89); GLUCOSE,RANDOM 102 MG/DL (74-106); LIPASE 200 U/L (73-393); MAGNESIUM 2.2 MG/DL (1.5-2.5); SODIUM (NA) 139 MEQ/L (136-145)
[2017-10-03] MEDS ORDERED: ACETAMINOPHEN 325 MG TAB PO ONE (22:45)
[2017-10-03 22:50] LABS: PROTHROMBIN TIME - PATIENT 10.2 SEC (9.8-11.6)
[2017-10-03 23:30] VITALS: BP 112/59; PULSE 76; RESP 24; O2SAT 94
--- NOTE | 2017-10-03 23:50 | PD ---
Physical Exam Date Seen by Provider: Oct 03, 2017 Time Seen by Provider: 23:00 Narrative accepted in transfer of care GENERAL: Well-developed well-nourished male in no acute distress no respiratory distress SKIN: Warm and dry. NECK: Supple, trachea midline. No JVD or lymphadenopathy. CARDIOVASCULAR: Regular rate and rhythm without murmurs, gallops, or rubs. RESPIRATORY: Breath sounds equal bilaterally. No accessory muscle use. MUSCULOSKELETAL: No cyanosis, bilateral lower leg edema. Data Data Last Documented VS Vital Signs Date Time Temp Pulse Resp B/P (MAP) Pulse Ox O2 Delivery O2 Flow Rate FiO2 10/03/17 21:56 84 97 Room Air 10/03/17 21:52 98.1 17 Orders Orders Electrocardiogram (10/03/17 21:53) Complete Blood Count With Diff (10/03/17 21:53) Comprehensive Metabolic Panel (10/03/17 21:53) Ckmb (Isoenzyme) Profile (10/03/17 21:53) Troponin I (10/03/17 21:53) Prothrombin Time / Inr (Pt) (10/03/17 21:53) Act Partial Throm Time (Ptt) (10/03/17 21:53) Lipase (10/03/17 21:53) Magnesium (Mg) (10/03/17 21:53) Chest, Single Ap (10/03/17 21:53) Iv Access Insert/Monitor (10/03/17 21:53) Ecg Monitoring (10/03/17 21:53) Oximetry (10/03/17 21:53) Aspirin (Aspirin) (10/03/17 22:00) Nitroglycerin Sl (Nitrostat Sl) (10/03/17 22:00) CKMB (10/03/17 21:39) CKMB% (10/03/17 21:39) Acetaminophen (Tylenol) (10/03/17 22:45) Nitroglycerin Sl (Nitrostat Sl) (10/03/17 23:00) Admit Order (Ed Use Only) (10/03/17 ) Pediatric Assistant / Telemetry BYRON.Q8H (10/03/17 23:46) Diet Heart Healthy (10/04/17 Breakfast) Activity Oob With Assistance (10/03/17 23:46) Notify Dr: Other (10/03/17 23:46) Activity Bed Rest With Brp (10/03/17 23:46) Vital Signs (Adult) Q4H (10/03/17 23:46) Cardiac Rhythm .As Directed (10/03/17 23:46) Notify Dr: Other .PRN (10/03/17 23:46) Notify Parameters (10/03/17 23:46) Resp Oxygen Nasal Cannula (10/03/17 ) Ckmb (Isoenzyme) Profile (10/04/17 00:30) Ckmb (Isoenzyme) Profile (10/04/17 03:30) Troponin I (10/04/17 00:30) Troponin I (10/04/17 03:30) Electrocardiogram (10/04/17 00:30) Electrocardiogram (10/04/17 03:30) ^ Obtain (10/03/17 23:46) Sodium Chloride 0.9% Flush (Ns Flush) (10/04/17 00:00) Sodium Chloride 0.9% Flush (Ns Flush) (10/04/17 09:00) Acetaminophen (Tylenol) (10/04/17 00:00) Acetamin-Hydrocod 325-7.5 Mg ([place] 7.5 (10/04/17 00:00) Ondansetron Inj (Zofran Inj) (10/04/17 00:00) Nitroglycerin Sl (Nitrostat Sl) (10/04/17 00:00) Aspirin (Aspirin) (10/04/17 09:00) Pediatric Assistant / Telemetry BYRON.Q8H (10/03/17 23:46) Morphine Inj (Morphine Inj) (10/04/17 00:00) Labs Laboratory Tests Test 10/03/17 21:39 White Blood Count 8.6 TH/MM3 Red Blood Count 4.96 MIL/MM3 Hemoglobin 14.9 GM/DL Hematocrit 43.8 % Mean Corpuscular Volume 88.3 FL Mean Corpuscular Hemoglobin 30.0 PG Mean Corpuscular Hemoglobin Concent 34.0 % Red Cell Distribution Width 13.4 % Platelet Count 261 TH/MM3 Mean Platelet Volume 7.1 FL Neutrophils (%) (Auto) 59.4 % Lymphocytes (%) (Auto) 15.8 % Monocytes (%) (Auto) 8.8 % Eosinophils (%) (Auto) 14.8 % Basophils (%) (Auto) 1.2 % Neutrophils # (Auto) 5.1 TH/MM3 Lymphocytes # (Auto) 1.4 TH/MM3 Monocytes # (Auto) 0.8 TH/MM3 Eosinophils # (Auto) 1.3 TH/MM3 Basophils # (Auto) 0.1 TH/MM3 CBC Comment DIFF FINAL Differential Comment Prothrombin Time 10.2 SEC Prothromb Time International Ratio 1.0 RATIO Activated Partial Thromboplast Time 28.0 SEC Blood Urea Nitrogen 20 MG/DL Creatinine 1.38 MG/DL Random Glucose 102 MG/DL Total Protein 7.9 GM/DL Albumin 3.6 GM/DL Calcium Level 8.6 MG/DL Magnesium Level 2.2 MG/DL Alkaline Phosphatase 112 U/L Aspartate Amino Transf (AST/SGOT) 44 U/L Alanine Aminotransferase (ALT/SGPT) 32 U/L Total Bilirubin 0.6 MG/DL Sodium Level 139 MEQ/L Potassium Level 3.9 MEQ/L Chloride Level 105 MEQ/L Carbon Dioxide Level 26.4 MEQ/L Anion Gap 8 MEQ/L Estimat Glomerular Filtration Rate 51 ML/MIN Total Creatine Kinase 191 U/L Creatine Kinase MB 2.4 NG/ML Troponin I LESS THAN 0.02 NG/ML Lipase 200 U/L MDM Medical Record Reviewed: Yes Supervised Visit with [facility]: Yes (I, Dr. Benson, have reviewed the advance practice practitioner's documentation and am in agreement, met with the patient face to face, made the diagnosis, and the medical decision making was done by me. ) Interpretation(s) EKG: Normal sinus rhythm no acute ST elevation or injury pattern change noted Last Impressions Chest X-Ray 10/03/17 [id number] Signed Impressions: Service Date/Time: Tuesday, October 03, 2017 22:03 - CONCLUSION: Right midlung and basilar airspace disease. James Esparza MD CBC & BMP Diagram 10/03/17 21:39 Total Protein 7.9, Albumin 3.6, Calcium Level 8.6, Magnesium Level 2.2, Alkaline Phosphatase 112, Aspartate Amino Transf (AST/SGOT) 44 H, Alanine Aminotransferase (ALT/SGPT) 32, Total Bilirubin 0.6 Vital Signs Date Time Temp Pulse Resp B/P (MAP) Pulse Ox O2 Delivery O2 Flow Rate FiO2 10/03/17 21:56 84 97 Room Air 10/03/17 21:52 98.1 88 17 97 10/03/17 21:38 87 20 150/71 (97) 94 Room Air Differential Diagnosis Chest pain, ACS, ND, pneumonia, PE, CHF, gastritis, pancreatitis, choledocholithiasis Narrative Course Accepted in transfer of care 72-year-old male with known history of hypertension and coronary vessel disease stent times one presents with retrosternal epigastric chest discomfort and bloating 7/10 in intensity times one day; no shortness of breath no sweats no nausea vomiting no referred neck jaw back shoulder arm pain. No recent febrile illness. Patient states feels as if he has a bubble in his stomach but denies any abdominal pain. Patient has had no referred pain into his back or mid scapular area. Patient is a nonsmoker. Concern for chest pain, ACS, ND, aortic dissection, PE, cholecystitis, pancreatitis, choledocholithiasis. Patient was placed on clinical research monitor EKG was performed which reveals no acute ST elevation or injury pattern cardiac enzymes ordered and found to be in normal range. Pain was initially 7/10 in intensity however has decreased to 2/10 intensity after 2 sublingual nitroglycerin EKG shows no acute injury pattern change present cardiac enzymes are normal range; patient feels clinically improved and is stable for chest pain center protocol for ongoing further evaluation. Patient is aware of imaging results including chest x-ray which shows right perihilar infiltrate patient was treated for community prior pneumonia approximately 3 weeks ago and imaging consistent with possibly resolving pneumonia infiltrate. Patient informed of imaging results. At this point in time patient requires further evaluation for chest pain with known coronary vessel disease and previous stent placement. Discussed case with on-call medicine -- recommend placing patient in chest pain center; patient appears stable at this time and further cardiac enzymes indicated will proceed with admission to chest pain center as patient appears clinically stable and not consistent with unstable angina/ACS. Physician Communication Physician Communication discussed with [facility] --> [facility] Diagnosis Primary Impression: Chest pain Admitting Information Admitting Physician Requests: Observation Amy Benson MD Oct 03, 2017 23:50
[2017-10-04] MEDS ORDERED: NITROGLYCERIN 0.4 MG SL 25 TABS/BTL SL PRN
[2017-10-04] MEDS ORDERED: ONDANSETRON HCL 4 MG/2 ML VIAL IV PUSH PRN
[2017-10-04] MEDS ORDERED: ACETAMINOPHEN 500 MG CPLT PO PRN
[2017-10-04] MEDS ORDERED: ACETAMINOPHEN/HYDROcodone 325 MG/7.5 MG TAB PO PRN
[2017-10-04] MEDS ORDERED: MORPHINE SULFATE 2 MG/ML INJ IV PUSH PRN
[2017-10-04] MEDS ORDERED: SODIUM CHLORIDE 0.9% FLUSH 10 ML FLUSH IV FLUSH PRN
[2017-10-04 00:05] VITALS: BP 113/58; PULSE 78; RESP 22; O2SAT 94
[2017-10-04 00:21] VITALS: O2SAT 96
[2017-10-04 01:00] VITALS: BP 127/65; PULSE 73; RESP 22; TEMP 97.7; O2SAT 93
[2017-10-04 01:20] LABS: TROPONIN I LESS THAN 0.02 NG/ML (0.02-0.05)
[2017-10-04 01:30] VITALS: PULSE 75
[2017-10-04 04:58] LABS: TROPONIN I LESS THAN 0.02 NG/ML (0.02-0.05)
[2017-10-04 05:40] VITALS: BP 132/74; PULSE 76; RESP 20; TEMP 97.7; O2SAT 93
[2017-10-04 09:00] VITALS: BP 128/68; PULSE 67; RESP 18; TEMP 96.2; O2SAT 96
[2017-10-04] MEDS ORDERED: ASPIRIN 325 MG TAB PO SCH (09:00)
[2017-10-04] MEDS ORDERED: SODIUM CHLORIDE 0.9% FLUSH 10 ML FLUSH IV FLUSH SCH (09:00)
--- NOTE | 2017-10-04 09:03 | HHI.DCPOC ---
Discharge Care Plan Diagnosis: (1) Hyperlipidemia (2) Chest pain (3) CAD (coronary artery disease) (4) H/O heart artery stent Goals to Promote Your Health * To prevent worsening of your condition and complications * To maintain your health at the optimal level Directions to Meet Your Goals Take your medications as prescribed Follow your dietary instruction Follow activity as directed Keep your appointments as scheduled Take your immunizations and boosters as scheduled If your symptoms worsen call your PCP, if no PCP go to Urgent Care Center or Emergency Room Smoking is Dangerous to Your Health. Avoid second hand smoke Call the 24-hour hour crisis hotline for domestic abuse at [place] Oct 04, 2017 09:03
--- NOTE | 2017-10-04 09:33 | HHI.HP ---
[facility] Primary Care Physician Arsen Alvarado MD Chief Complaint Chest pain History of Present Illness This is a 72-year-old male with history of CAD with stenting in 2016 and hyperlipidemia that presents to ED with complaint of developing a chest discomfort last night. States "it feels midepigastric and like I need to have a large belch." States lasted 2-1/2 hours. He was given subluminal nitroglycerin in the ED which brought the discomfort after first nitroglycerin of a 7 to a 4 out of 10. The discomfort resolved after the second subluminal nitroglycerin. Discomfort has not recurred. States it really is not the same type discomfort he had when eating the stent but it isn't a similar location. He had no shortness of breath, nausea, or diaphoresis with the symptoms. He follows Dr. walker of cardiology and last saw him November for preop clearance for hip surgery and states he had a normal stress test. Has not been having chest pain since his stent until last evening. Denies recent illness. Denies fevers or chills. No complaints at this time. Has history of hyperlipidemia but does not tolerate statins. Review of Systems General: Patient denies fevers, chills recent, and recent travel HEENT: Patient denies headache, sore throat, difficulty swallowing. Cardiovascular: Has the chest discomfort as mentioned above. Denies sensation of heart beating rapidly or irregularly. No syncope. Denies diaphoresis Respiratory: Denies shortness of breath or inspirational chest discomfort. Denies coughing wheezing or hemoptysis. GI: [place] like he needed to belch. Patient denies nausea, vomiting, diarrhea, abdominal pain, bloody stools. Musculoskeletal: Patient denies joint pain or edema. Denies calf pain or edema. Neurovascular: Patient denies numbness, tingling, weakness in extremities. Denies headache. Endocrine: Denies polyuria and polydipsia. Hematologic: Denies easy bruising. Skin: Denies rash or itching. Past Family Social History Allergies: Coded Allergies: atorvastatin (Unverified Adverse Reaction, Severe, muscle aches and liver function changes, 10/03/17) Past Medical History CAD with stents in circumflex over 2016. Hyperlipidemia but does not tolerate statins. Denies hypertension or diabetes. Past Surgical History Cardiac catheterization with stenting 2016. Right inguinal hernia repair, tonsillectomy, left hip. Reported Medications Reported Meds & Active Scripts Active Reported Aspirin 81 Mg Chew 81 Mg CHEW DAILY Metoprolol Tartrate 25 Mg Tab 25 Mg PO DAILY Active Ordered Medications Current Medications Medications (Trade) Dose Ordered Sig/Erick Route Start Time Stop Time Status Last Admin (NS Flush) 2 ml UNSCH PRN IV FLUSH 10/04/17 00:00 (NS Flush) 2 ml BID IV FLUSH 10/04/17 09:00 (Tylenol) 500 mg Q4H PRN PO 10/04/17 00:00 ([place] 7.5-325 Mg) 1 tab Q4H PRN PO 10/04/17 00:00 (Morphine Inj) 2 mg Q4H PRN IV PUSH 10/04/17 00:00 (Zofran Inj) 4 mg Q6H PRN IV PUSH 10/04/17 00:00 (Nitrostat Sl) 0.4 mg Q5M PRN SL 10/04/17 00:00 (Aspirin) 325 mg DAILY PO 10/04/17 09:00 Social History Nonsmoker. No alcohol or illicit drugs. 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 Physical Exam Vital Signs Vital Signs Date Time Temp Pulse Resp B/P (MAP) Pulse Ox O2 Delivery O2 Flow Rate FiO2 10/04/17 09:00 96.2 67 18 128/68 (88) 96 10/04/17 05:40 97.7 76 20 132/74 (93) 93 10/04/17 01:30 75 10/04/17 01:00 97.7 73 22 127/65 (85) 93 10/04/17 00:45 10/04/17 00:21 96 10/04/17 00:05 78 22 113/58 (76) 94 Room Air 10/03/17 23:30 76 24 112/59 (76) 94 Room Air 10/03/17 22:00 78 18 158/74 (102) 93 Room Air 10/03/17 21:56 84 97 Room Air 10/03/17 21:52 98.1 88 17 97 10/03/17 21:38 87 20 150/71 (97) 94 Room Air Physical Exam GENERAL: This is a well-nourished, well-developed patient, in no apparent distress. Patient speaks in clear complete sentences. Patient is pleasant. HEENT: Head is atraumatic and normocephalic. Neck is supple without lymphadenopathy and trachea is midline. No JVD or carotid bruits. CARDIOVASCULAR: Regular rate and rhythm without murmurs, gallops, or rubs. RESPIRATORY: Clear to auscultation. Breath sounds equal bilaterally. No wheezes , rales, or rhonchi. Chest wall is nontender. No use of accessory muscles. GASTROINTESTINAL: Abdomen is nontender, nondistended. Abdomen soft. No obvious pulsatile mass or bruit. No CVA tenderness. Strong femoral pulses bilaterally. Normal bowel sounds in all quadrants. MUSCULOSKELETAL: Patient is moving upper and lower extremities freely. No calf tenderness or edema, no Homans sign. Strong pulses in upper and lower extremities. NEUROLOGICAL: Patient is alert and oriented. Cranial nerves 2-12 are grossly intact. No focal deficits and speech is clear. SKIN: No rash and turgor is normal. Laboratory Laboratory Tests Test 10/03/17 21:39 10/04/17 00:40 10/04/17 03:40 White Blood Count 8.6 Red Blood Count 4.96 Hemoglobin 14.9 Hematocrit 43.8 Mean Corpuscular Volume 88.3 Mean Corpuscular Hemoglobin 30.0 Mean Corpuscular Hemoglobin Concent 34.0 Red Cell Distribution Width 13.4 Platelet Count 261 Mean Platelet Volume 7.1 Neutrophils (%) (Auto) 59.4 Lymphocytes (%) (Auto) 15.8 Monocytes (%) (Auto) 8.8 Eosinophils (%) (Auto) 14.8 Basophils (%) (Auto) 1.2 Neutrophils # (Auto) 5.1 Lymphocytes # (Auto) 1.4 Monocytes # (Auto) 0.8 Eosinophils # (Auto) 1.3 Basophils # (Auto) 0.1 CBC Comment DIFF FINAL Differential Comment Prothrombin Time 10.2 Prothromb Time International Ratio 1.0 Activated Partial Thromboplast Time 28.0 Blood Urea Nitrogen 20 Creatinine 1.38 Random Glucose 102 Total Protein 7.9 Albumin 3.6 Calcium Level 8.6 Magnesium Level 2.2 Alkaline Phosphatase 112 Aspartate Amino Transf (AST/SGOT) 44 Alanine Aminotransferase (ALT/SGPT) 32 Total Bilirubin 0.6 Sodium Level 139 Potassium Level 3.9 Chloride Level 105 Carbon Dioxide Level 26.4 Anion Gap 8 Estimat Glomerular Filtration Rate 51 Total Creatine Kinase 191 155 140 Creatine Kinase MB 2.4 1.9 1.7 Troponin I LESS THAN 0.02 LESS THAN 0.02 LESS THAN 0.02 Lipase 200 Result Diagram: 10/03/17213810/03/172138 Imaging Last 48 hours Impressions Chest X-Ray 10/03/172152 Signed Impressions: Service Date/Time: Tuesday, October 03, 2017 22:03 - CONCLUSION: Right midlung and basilar airspace disease. James Esparza MD Course EKG is a sinus rhythm without significant ST segment depressions or elevations. Caprini VTE Risk Assessment Caprini VTE Risk Assessment: Mod/High Risk (score >= 2) Caprini Risk Assessment Model Point Value = 1 Point Value = 2 Point Value = 3 Point Value = 5 Age 41-60 Minor surgery BMI > 25 kg/m2 Swollen legs Varicose veins or History of unexplained or recurrent spontaneous Oral contraceptives or hormone replacement Sepsis (< 1 month) Serious lung disease, including pneumonia (< 1 month) Abnormal pulmonary function Acute myocardial infarction Congestive heart failure (< 1 month) History of inflammatory bowel disease Medical patient at bed rest Age 61-74 Arthroscopic surgery Major open surgery (> 45 min) Laparoscopic surgery (> 45 min) Malignancy Confined to bed (> 72 hours) Immobilizing plaster cast Central venous access Age >= 75 History of VTE Family history of VTE Factor V Leiden Prothrombin [id number] Lupus anticoagulant Anticardiolipin antibodies Elevated serum homocysteine Heparin-induced thrombocytopenia Other congenital or acquired thrombophilia Stroke (< 1 month) Elective arthroplasty Hip, pelvis, or leg fracture Acute spinal cord injury (< 1 month) Prophylaxis Regimen Total Risk Factor Score Risk Level Prophylaxis Regimen 0-1 Low Early ambulation 2 Moderate Order ONE of the following: *Sequential Compression Device (SCD) *Heparin 5000 units SQ BID 3-4 Higher Order ONE of the following medications: *Heparin 5000 units SQ TID *Enoxaparin/Lovenox 40 mg SQ daily (WT < 150 kg, CrCl > 30 mL/min) *Enoxaparin/Lovenox 30 mg SQ daily (WT < 150 kg, CrCl > 10-29 mL/min) *Enoxaparin/Lovenox 30 mg SQ BID (WT < 150 kg, CrCl > 30 mL/min) AND/OR *Sequential Compression Device (SCD) 5 or more Highest Order ONE of the following medications: *Heparin 5000 units SQ TID (Preferred with Epidurals) *Enoxaparin/Lovenox 40 mg SQ daily (WT < 150 kg, CrCl > 30 mL/min) *Enoxaparin/Lovenox 30 mg SQ daily (WT < 150 kg, CrCl > 10-29 mL/min) *Enoxaparin/Lovenox 30 mg SQ BID (WT < 150 kg, CrCl > 30 mL/min) AND *Sequential Compression Device (SCD) Assessment and Plan Assessment and Plan * Chest pain: Patient had serial cardiac enzymes and EKGs for ruling out purposes. Does have history of CAD. Patient was seen by Dr. Sivakumar Nobles and plan were to do a stress test however after speaking with the patient's criminal intelligence specialist a stress test would not be obtained at this time and the chest pain center but he will be going directly to Dr. faust's office palpating here to be seen by Dr. faust. Patient states that Dr. faust's office as I recall them to talk to come directly to his office from the chest pain center. He is agreeable to this plan. Patient is stable this time. He certainly should return to the ED for any issues after being discharged. * CAD: Patient had serial cardiac enzymes and EKGs for the purposes. He is going to see his criminal intelligence specialist in his office this morning medially after discharge from this facility. Patient is to resume his medications. * Hyperlipidemia: Patient states he does not tolerate statins. Further discussion with his criminal intelligence specialist. Patient is stable this time. He is agreeable to this plan. Pipe Weber Oct 04, 2017 09:33
--- NOTE | 2017-10-05 07:54 | EKG ---
Date Performed: 10/04/2017 Time Performed: 00:34:54 PTAGE: 72 years EKG: Sinus rhythm SEPTAL MYOCARDIAL INFARCTION ABNORMAL ECG Since previous tracing, no significant change noted NO PREVIOUS TRACING DOCTOR: Leighann Arrieta Interpretating Date/Time 10/05/2017 07:53:16
--- NOTE | 2017-10-05 07:54 | EKG ---
Date Performed: 10/03/2017 Time Performed: 21:46:55 PTAGE: 72 years EKG: Sinus rhythm LOW QRS VOLTAGE IN PRECORDIAL LEADS SEPTAL MYOCARDIAL INFARCTION ABNORMAL ECG Since PREVIOUS TRACING , no significant change noted PREVIOUS TRACIN11/14/2015 04.37 DOCTOR: Leighann Arrieta Interpretating Date/Time 10/05/2017 07:52:32
--- NOTE | 2017-10-05 07:54 | EKG ---
Date Performed: 10/04/2017 Time Performed: 05:50:41 PTAGE: 72 years EKG: Sinus rhythm NORMAL ECG Since PREVIOUS TRACING , no significant change noted PREVIOUS TRACIN10/03/2017 21.46 DOCTOR: Leighann Arrieta Interpretating Date/Time 10/05/2017 07:54:24
== END 2017-10-04 10:13 | disposition home or self-care (01) ==
LOC: NEPC 21:36 → NEDA 23:49 → NEPFCDU 10-04 01:44
PROVIDERS: ADMIT Internal Medicine Interventional Cardiology; ATTEND Internal Medicine Interventional Cardiology
DX: R07.9 Chest pain, unspecified (principal); I25.10 Atherosclerotic heart disease of native coronary artery without angina pectoris; I10 Essential (primary) hypertension; R94.31 Abnormal electrocardiogram [ECG] [EKG]; E78.5 Hyperlipidemia, unspecified; Z95.5 Presence of coronary angioplasty implant and graft; Z86.711 Personal history of pulmonary embolism; Z87.01 Personal history of pneumonia (recurrent)
CPT/HCPCS: 71045; 80053; 82550; 82552; 83690; 83735; 84484; 85025; 85610; 85730; 93005; 99285; G0378

== ENCOUNTER 2018-05-07 03:46 | Observation (INO) ==
[2018-05-07 05:47] LABS: Baso # (Auto) 0.1 th/mm3 (0.0-0.2); Baso % (Auto) 0.5 % (0.0-2.0); Eos # (Auto) 0.1 th/mm3 (0.0-0.4); Hematocrit 45.6 % (39.0-51.0); Hemoglobin 15.5 gm/dL (13.0-17.0); Lymph # (Auto) 0.5 th/mm3 (1.0-4.8); Lymph % (Auto) 4.3 % (9.0-44.0); Mean Corpuscular HGB Conc 33.9 % (32.0-36.0); Mean Corpuscular Hemoglobin 30.6 pg (27.0-34.0); Mean Corpuscular Volume 90.3 fL (80.0-100.0); Mean Platelet Volume 7.5 fL (7.0-11.0); Mono # (Auto) 0.8 th/mm3 (0.0-0.9); Mono % (Auto) 7.8 % (0.0-8.0); Neut # (Auto) 9.2 th/mm3 (1.8-7.7); Neut % (Auto) 86.4 % (16.0-70.0); Platelet Count 199 th/mm3 (150-450); Red Blood Count 5.05 mil/mm3 (4.50-5.90); Red Cell Distribution Width 13.7 % (11.6-17.2); White Blood Count 10.6 th/mm3 (4.0-11.0)
[2018-05-07 05:59] LABS: Albumin 3.9 g/dL (3.4-5.0); Anion Gap 12 meq/L (5-15); Aspartate Aminotransferase 22 U/L (15-37); Blood Urea Nitrogen 18 mg/dL (7-18); Calcium 8.7 mg/dL (8.5-10.1); Carbon Dioxide 22.4 meq/L (21.0-32.0); Chloride 106 meq/L (98-107); Glomerular Filtration Rate 62 mL/min (>89); Glucose,Random 121 mg/dL (74-106); Potassium 3.6 meq/L (3.5-5.1); Sodium 140 meq/L (136-145)
[2018-05-07 06:04] LABS: Alanine Aminotransferase 27 U/L (12-78); Alkaline Phosphatase 84 U/L (45-117); Total Protein 7.8 g/dL (6.4-8.2)
--- NOTE | 2018-05-07 06:04 | XR ---
EXAM DATE: 05/07/2018 5:59 AM EDT AGE/SEX: 73 years / Male INDICATIONS: Shortness of breath. CLINICAL DATA: This is the patient's initial encounter. Patient reports that signs and symptoms have been present for 1 day and indicates a pain score of 0/10. MEDICAL/SURGICAL HISTORY: None. Coronary artery stent. COMPARISON: [facility] [place]ST SINGLE AP, 10/03/2017. . FINDINGS: Portable AP view of the chest demonstrates cardiac silhouette size at the upper limits for normal. EK G lines overlie the patient. Lungs are underinflated and there are mild interstitial opacities at the lung bases. No pleural effusion or pneumothorax is identified. Bones demonstrate no acute finding. T here is an old healed left clavicle fracture. CONCLUSION: Mild interstitial opacities are present at the lung bases and could represent atelectasis given the u nderinflation or could represent interstitial edema. Electronically signed by: Hima Beckham MD 05/07/2018 6:03 AM EDT
--- NOTE | 2018-05-07 07:03 | ED ---
HPI General Chief Complaint: Chest Pain Stated Complaint: chest pain x 1 hour sob 2 yrs stent put in Time Seen by Provider: 05/07/18 04:49 History of Present Illness HPI narrative: Patient is a 73-year-old male presents the emergency department with chief complaint of chest pain shortness of breath. Symptoms began approximately 1 AM and woke him from sleep. He has had episodes in the past but never this severe. Shortness of breath is also a new symptom. Patient had a previous stent approximately 2 years ago and he has had follow-up since. He takes only aspirin after his stents as he did not tolerate Plavix because of nosebleeds and other random bleeding. Patient is a non-smoker. He denies alcohol or drug use. 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 Complete Quality Measures for STEMI Alert Patients Related Data Home Medications Medication Instructions Recorded Confirmed aspirin [Aspir-81] 81 mg DAILY 05/07/18 05/07/18 metoprolol succinate 25 mg PO DAILY 05/07/18 05/07/18 Allergies Allergy/AdvReac Type Severity Reaction Status Date / Time atorvastatin AdvReac Severe muscle Verified 05/07/18 10:29 aches and liver function changes clopidogrel [From Plavix] AdvReac Bleeding Verified 05/07/18 10:29 Review of Systems ROS: all other systems reviewed are negative Constitutional Denies fever(s) ENT Reports epistaxis Cardiovascular Reports chest pain, Reports edema and Denies lightheadedness Respiratory Reports dyspnea and Reports dyspnea on exertion Integumentary/Breasts Denies rash and Denies skin ulcer Neurologic Denies headache(s), Denies focal weakness, Denies numbness, Denies sensory deficit and Denies tingling Hematologic/Lymphatic Reports easy bleeding (ON PLAVIX) [facility] Medical History Medical History Pneumonia (Acute) Traumatic injury of shoulder (Acute) Surgical History Surgical History History of sinus surgery (Acute) History of hip replacement (Acute) H/O heart artery stent (Acute) Family History Family History Father Murder of relative Mother Alzheimer's dementia Daughter Carcinoid tumor Social History Social History Substance History: No History of Abuse Smoking Status: Former smoker Tobacco Type: Cigarettes Years Smoked: 30 Number of Pack-Years (if former smoker): 30 How Often Do You Have a Drink Containing Alcohol: Never Immunization History Tetanus Immunization: >5 Years Hx Influenza Vaccine This Season: Yes Exam Narrative Exam Narrative: GENERAL: 73-year-old male in mild respiratory distress. SKIN: Focused skin assessment warm/dry. HEAD: Atraumatic. Normocephalic. EYES: Pupils equal and round. No scleral icterus. No injection or drainage. ENT: No nasal bleeding or discharge. Mucous membranes pink and moist. NECK: Trachea midline. No JVD. CARDIOVASCULAR: Regular rate and rhythm. No murmur appreciated. RESPIRATORY: No accessory muscle use. Clear to auscultation but some scattered rhonchi noted. Breath sounds equal bilaterally. GASTROINTESTINAL: Abdomen soft, non-tender, nondistended. Hepatic and splenic margins not palpable. MUSCULOSKELETAL: No obvious deformities. No clubbing. No cyanosis. No edema. NEUROLOGICAL: Awake and alert. No obvious cranial nerve deficits. Motor grossly within normal limits. Normal speech. PSYCHIATRIC: Appropriate mood and affect; insight and judgment normal. Course Initial Documented Vital Signs Temperature 98.4 F 05/07/18 04:11 Pulse Rate 91 H 05/07/18 04:11 Respiratory Rate 20 05/07/18 04:11 Blood Pressure 183/84 H 05/07/18 04:11 Pulse Oximetry 92 L 05/07/18 04:11 Last Documented Vital Signs Temperature 98.8 F 05/07/18 12:00 Pulse Rate 84 05/07/18 12:00 Respiratory Rate 18 05/07/18 12:00 Blood Pressure 152/75 H 05/07/18 12:00 Pulse Oximetry 94 L 05/07/18 12:00 Sign Out Sign Out Data: Patient Sign Out occurred on 05/07/18 at 07:39. Patient's care was discussed, and care was transferred from Marii Adrian to Brittany Echeverria MD. Sign Out Comment: CHEST PAIN/SOB PENDING CT - WOULD PREFER TO ADMIT BUT CHEST PAIN CENTER IS OK IF CT IS NEGATIVE. 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 Patient states he feels well at this time. He has been admitted to the chest pain center for serial EKGs and troponins. Patient agreed to this plan and all questions were answered. Medical Decision Making MDM Narrative Medical decision making narrative: Patient was seen and evaluated in the emergency department. CT was negative for acute injury with no evidence of acute ST segment elevation or depression consistent with myocardial injury. He was given nitroglycerin which provided some relief. He remained short of breath. X-ray revealed possible interstitial edema. CT of the chest was obtained for further evaluation of interstitial edema, pulmonary embolism, or pneumonia. The plan would be to admit the patient were at [facility] chest pain center. Patient was signed out to Dr. Echeverria at discharge Lab Data Result diagrams: 05/07/18 05:00 05/07/18 05:00 Lab Results 05/07/18 05/07/18 05/07/18 Range/Units 05:00 05:00 05:00 WBC 10.6 (4.0-11.0) th/mm3 RBC 5.05 (4.50-5.90) mil/mm3 Hgb 15.5 (13.0-17.0) gm/dL Hct 45.6 (39.0-51.0) % MCV 90.3 (80.0-100.0) fL MCH 30.6 (27.0-34.0) pg MCHC 33.9 (32.0-36.0) % RDW 13.7 (11.6-17.2) % Plt Count 199 (150-450) th/mm3 MPV 7.5 (7.0-11.0) fL Neut % (Auto) 86.4 H (16.0-70.0) % Lymph % (Auto) 4.3 L (9.0-44.0) % [place] % (Auto) 7.8 (0.0-8.0) % Eos % (Auto) 1.0 (0.0-4.0) % Baso % (Auto) 0.5 (0.0-2.0) % Neut # (Auto) 9.2 H (1.8-7.7) th/mm3 Lymph # (Auto) 0.5 L (1.0-4.8) th/mm3 [place] # (Auto) 0.8 (0.0-0.9) th/mm3 Eos # (Auto) 0.1 (0.0-0.4) th/mm3 Baso # (Auto) 0.1 (0.0-0.2) th/mm3 WBC Differential . Differential Comment Auto diff final ESR (0-20) mm/hr APTT 27.5 (24.3-30.1) sec Sodium 140 (136-145) meq/L Potassium 3.6 (3.5-5.1) meq/L Chloride 106 (98-107) meq/L Carbon Dioxide 22.4 (21.0-32.0) meq/L Anion Gap 12 (5-15) meq/L BUN 18 (7-18) mg/dL Creatinine 1.15 (0.60-1.30) mg/dL Estimated GFR 62 L (>89) mL/min Random Glucose 121 H (74-106) mg/dL Calcium 8.7 (8.5-10.1) mg/dL Total Bilirubin 0.6 (0.2-1.0) mg/dL AST 22 (15-37) U/L ALT 27 (12-78) U/L Alkaline Phosphatase 84 (45-117) U/L Total Creatine Kinase (39-308) U/L Troponin I Less than 0.02 L (0.02-0.05) ng/mL B-Natriuretic Peptide (0-100) pg/mL Total Protein 7.8 (6.4-8.2) g/dL Albumin 3.9 (3.4-5.0) g/dL 05/07/18 05/07/18 05/07/18 Range/Units 05:00 05:00 09:44 WBC (4.0-11.0) th/mm3 RBC (4.50-5.90) mil/mm3 Hgb (13.0-17.0) gm/dL Hct (39.0-51.0) % MCV (80.0-100.0) fL MCH (27.0-34.0) pg MCHC (32.0-36.0) % RDW (11.6-17.2) % Plt Count (150-450) th/mm3 MPV (7.0-11.0) fL Neut % (Auto) (16.0-70.0) % Lymph % (Auto) (9.0-44.0) % [place] % (Auto) (0.0-8.0) % Eos % (Auto) (0.0-4.0) % Baso % (Auto) (0.0-2.0) % Neut # (Auto) (1.8-7.7) th/mm3 Lymph # (Auto) (1.0-4.8) th/mm3 [place] # (Auto) (0.0-0.9) th/mm3 Eos # (Auto) (0.0-0.4) th/mm3 Baso # (Auto) (0.0-0.2) th/mm3 WBC Differential Differential Comment ESR 5 (0-20) mm/hr APTT (24.3-30.1) sec Sodium (136-145) meq/L Potassium (3.5-5.1) meq/L Chloride (98-107) meq/L Carbon Dioxide (21.0-32.0) meq/L Anion Gap (5-15) meq/L BUN (7-18) mg/dL Creatinine (0.60-1.30) mg/dL Estimated GFR (>89) mL/min Random Glucose (74-106) mg/dL Calcium (8.5-10.1) mg/dL Total Bilirubin (0.2-1.0) mg/dL AST (15-37) U/L ALT (12-78) U/L Alkaline Phosphatase (45-117) U/L Total Creatine Kinase 85 (39-308) U/L Troponin I Less than 0.02 L (0.02-0.05) ng/mL B-Natriuretic Peptide 19 (0-100) pg/mL Total Protein (6.4-8.2) g/dL Albumin (3.4-5.0) g/dL 05/07/18 Range/Units 11:40 WBC (4.0-11.0) th/mm3 RBC (4.50-5.90) mil/mm3 Hgb (13.0-17.0) gm/dL Hct (39.0-51.0) % MCV (80.0-100.0) fL MCH (27.0-34.0) pg MCHC (32.0-36.0) % RDW (11.6-17.2) % Plt Count (150-450) th/mm3 MPV (7.0-11.0) fL Neut % (Auto) (16.0-70.0) % Lymph % (Auto) (9.0-44.0) % [place] % (Auto) (0.0-8.0) % Eos % (Auto) (0.0-4.0) % Baso % (Auto) (0.0-2.0) % Neut # (Auto) (1.8-7.7) th/mm3 Lymph # (Auto) (1.0-4.8) th/mm3 [place] # (Auto) (0.0-0.9) th/mm3 Eos # (Auto) (0.0-0.4) th/mm3 Baso # (Auto) (0.0-0.2) th/mm3 WBC Differential Differential Comment ESR (0-20) mm/hr APTT (24.3-30.1) sec Sodium (136-145) meq/L Potassium (3.5-5.1) meq/L Chloride (98-107) meq/L Carbon Dioxide (21.0-32.0) meq/L Anion Gap (5-15) meq/L BUN (7-18) mg/dL Creatinine (0.60-1.30) mg/dL Estimated GFR (>89) mL/min Random Glucose (74-106) mg/dL Calcium (8.5-10.1) mg/dL Total Bilirubin (0.2-1.0) mg/dL AST (15-37) U/L ALT (12-78) U/L Alkaline Phosphatase (45-117) U/L Total Creatine Kinase 65 (39-308) U/L Troponin I Less than 0.02 L (0.02-0.05) ng/mL B-Natriuretic Peptide (0-100) pg/mL Total Protein (6.4-8.2) g/dL Albumin (3.4-5.0) g/dL Imaging Data Radiologist's impression: Chest X-Ray 05/07/18 00:00 CONCLUSION: Mild interstitial opacities are present at the lung bases and could represent atelectasis given the underinflation or could represent interstitial edema. Chest CTA 05/07/18 06:51 CONCLUSION: 1. No evidence for pulmonary embolism. 2. Small pericardial effusion. 3. Minimal bibasilar densities likely atelectasis. 4. Nodular density in the lingula inferiorly measures 1.6 cm. Follow-up CT chest in 3 months recommended for stability. Discharge Plan Discharge Disposition Patient Disposition: 30 Still Patient Discharge Condition Condition: Stable Discharge Order Discharge Orders: Discharge Order (Routine); Ordered 05/07/18 Ordered By: Casi Majano Discharge Details Anticipated Discharge Date: 05/07/18 Diagnosis: Chest pain, rule out acute myocardial infarction Physicians Team ED Provider: Brittany Echeverria Primary Care Provider: Arsen Alvarado Attending Provider: Andres Smart Status ED Status: Left Department Discharge Information Discharge Date/Time: 05/07/18 10:00
--- NOTE | 2018-05-07 07:36 | CT ---
EXAM DATE: 05/07/2018 7:29 AM EDT AGE/SEX: 73 years / Male INDICATIONS: Substernal chest pain today. CLINICAL DATA: This is the patient's initial encounter. Patient reports that signs and symptoms have been present for 1 day and indicates a pain score of 5/10. MEDICAL/SURGICAL HISTORY: Cardiovascular disease. Coronary artery stent. RADIATION DOSE: 10.06 CTDI (mGy) COMPARISON: [facility], CHEST 1V SINGLE AP, 05/07/2018. . TECHNIQUE: Volumetric scanning was performed using a multi-row detector CT scanner during bolus infu merari of 70 ml Omnipaque 350 (iohexol) nonionic water-soluble contrast as a single exam dose. The muna a was post processed with a variety of visualization algorithms including full volume maximum intensi ty projection and sliding thin slab reformation. Using automated exposure control and adjustment of t he mA and/or kV according to patient size, radiation dose was kept as low as reasonably achievable to obtain optimal diagnostic quality images. DICOM format image data is available electronically for r eview and comparison. FINDINGS: Pulmonary Arteries: No filling defects are seen in the pulmonary arteries out to the subsegmental ve ssels. The left and right pulmonary arteries are normal in diameter. Lung: No infiltrates seen. Minimal bibasilar densities likely atelectasis. Nodular density in the li ngula measures 1.6 cm. Effusion: None. Mediastinum: No evidence of mediastinal or hilar adenopathy. Other: The axilla is unremarkable. Pericardial effusion measures 1.3 cm posteriorly. CONCLUSION: 1. No evidence for pulmonary embolism. 2. Small pericardial effusion. 3. Minimal bibasilar densities likely atelectasis. 4. Nodular density in the lingula inferiorly measures 1.6 cm. Follow-up CT chest in 3 months recomme nded for stability. Electronically signed by: Janusz Griffith MD 05/07/2018 7:34 AM EDT
--- NOTE | 2018-05-07 09:55 | ECG ---
Date Performed: 05/07/2018 Time Performed: 04:02:18 PTAGE: 73 years EKG: Sinus rhythm POSSIBLE LEFT ATRIAL ENLARGEMENT BORDERLINE ECG PREVIOUS TRACING : 05/07/2018 04.01 DOCTOR: Ryan Herr Interpretating Date/Time 05/07/2018 09:53:34
[2018-05-07 11:12] LABS: Creatine Kinase 85 U/L (39-308)
--- NOTE | 2018-05-07 11:43 | P.HPCA ---
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 Olmedo in October 2015. At that time he was essentially found to have single-vessel disease. The chest pain he was experiencing prior to that episode was not like the chest pain he is currently experiencing and was completely relieved by the stent placement. In November of this past year he had an episode of pleuritic chest pain somewhat similar to his current pain and was diagnosed with pneumonia. He was subsequently reevaluated by Dr. denise posey with a stress test in the latter part of November which was reported as negative. Since that time his comments that he has had a nonproductive cough and the patient complains of his sinuses and some problems with swallowing. However he awoke at 101 30 this morning with relatively severe mid sternal and slight left chest pain which was quite severe rated at 8 out of 10 and was pleuritic in nature. He only has the pain with a deep breath. By limiting his breathing to "baby breaths" he is not having pain at the current time he also complains of shortness of breath but it is not clear whether this is due to the pain or in addition to the limitation from the pleuritic pain. Evaluation at the time of my exam included a CTA of the chest which reveals a 1.6 cm nodule in the lingula and also a small amount of pericardial effusion. He also is noted to have pedal edema and on questioning states he has had this for quite some time. Review of Systems All other systems reviewed negative except as stated in HPI PMFSH - History History Provided By: Patient - Medical / Surgical Hx Neg / Unobtainable Medical Problems Denied: Yes - Medical History Medical History: Medical History (Last Updated 05/07/18 @ 11:27 by Andres Smart MD) Pneumonia (Acute) Traumatic injury of shoulder (Acute) - Surgical History Surgical History: Surgical History (Last Updated 05/07/18 @ 11:27 by Andres Smart MD) History of sinus surgery (Acute) History of hip replacement (Acute) H/O heart artery stent (Acute) - Family History Family History: Family History (Last Updated 05/07/18 @ 11:27 by Andres Smart MD) Father Murder of relative Mother Alzheimer's dementia Daughter Carcinoid tumor - Tobacco History Tobacco Use In Past 30 Days: No ([id number] history but none in 20 years) Smoking Status: Former smoker Tobacco Type: Cigarettes Years Smoked: 30 Number of Pack Years (if former smoker): 30 - Alcohol History How Often Do You Have a Drink Containing Alcohol: Never - Substance Use History Substance History: No History of Abuse - Travel History Recent Travel in the [place] Within the Last 8 Weeks: No Recent Travel Out of the Country Within the Last 8 Weeks: No - Immunization History Tetanus Immunization: >5 Years Hx Influenza Vaccine This Season: Yes Medications and Allergies Active Medications: Active Medications Sodium Chloride (Ns Flush) 2 ml IV.FLUSH BID SOCORRO Sodium Chloride (Ns Flush) 2 ml IV.FLUSH PRN PRN PRN Reason: FLUSH AFTER USING IV ACCESS Allergies Allergy/AdvReac Type Severity Reaction Status Date / Time atorvastatin AdvReac Severe muscle Verified 05/07/18 10:29 aches and liver function changes clopidogrel [From Plavix] AdvReac Bleeding Verified 05/07/18 10:29 Home Medications Medication Instructions Recorded Confirmed Type aspirin [Aspir-81] 81 mg DAILY 05/07/18 05/07/18 History metoprolol succinate 25 mg PO DAILY 05/07/18 05/07/18 History Exam Vital signs: Vital Signs 05/07/18 04:11 05/07/18 04:35 05/07/18 05:19 Temperature 98.4 F Pulse Rate 91 H 87 90 Respiratory Rate 20 22 18 Blood Pressure 183/84 H 181/81 H Pulse Oximetry 92 L 92 L 94 L 05/07/18 06:35 05/07/18 07:00 Temperature Pulse Rate 81 79 Respiratory Rate 18 20 Blood Pressure 139/65 138/63 Pulse Oximetry 94 L 95 Intake & Output 05/06/18 05/07/18 05/07/18 18:59 06:59 18:59 Weight 120.202 kg Narrative: Well-nourished well-developed moderately obese man in no acute distress other than pleuritic pain Skin is warm and dry E heavily tanned with actinic change. There is a small coin-sized lesion in his right lower extremity. Head normocephalic atraumatic Eyes PERRLA EOMI sclera slightly injected but otherwise clear Mouth mucous membranes moist tongue well papillated no lesions Nares appear to be open bilaterally with no lesions Neck is supple no JVD masses nodes or bruits Chest reveals somewhat diminished breath sounds due to voluntary guarding but no rales wheezes or rhonchi Cardiovascular PMI is not displaced there is a regular rhythm with a 1/6 systolic murmur. There is no gallop. The murmur is somewhat diffuse and the possibility that it could be a very soft rub was entertained but could not be clearly differentiated. Abdomen is obese soft nontender no guarding or rebound and no hepatosplenomegaly Extremities reveal 2+ pitting edema to the mid tibia and a small coin lesion on the right lower extremity. Pulses were diminished to the right lower extremity. Neurologic examination was unremarkable cranial nerves were intact and motor was 4+ to all extremities Psychiatric patient's orientation and memory appeared to be reasonably good and his affect is normal Results 05/07/18 05:00 05/07/18 05:00 Cardiac Enzymes 05/07/18 05/07/18 Range/Units 05:00 09:44 AST 22 (15-37) U/L Troponin I Less than 0.02 L Less than 0.02 L (0.02-0.05) ng/mL Coagulation 05/07/18 Range/Units 05:00 APTT 27.5 (24.3-30.1) sec CBC 05/07/18 Range/Units 05:00 WBC 10.6 (4.0-11.0) th/mm3 RBC 5.05 (4.50-5.90) mil/mm3 Hgb 15.5 (13.0-17.0) gm/dL Hct 45.6 (39.0-51.0) % Plt Count 199 (150-450) th/mm3 Neut # (Auto) 9.2 H (1.8-7.7) th/mm3 Lymph # (Auto) 0.5 L (1.0-4.8) th/mm3 Bradley # (Auto) 0.8 (0.0-0.9) th/mm3 Eos # (Auto) 0.1 (0.0-0.4) th/mm3 Baso # (Auto) 0.1 (0.0-0.2) th/mm3 Comprehensive Metabolic Panel 05/07/18 Range/Units 05:00 Sodium 140 (136-145) meq/L Potassium 3.6 (3.5-5.1) meq/L Chloride 106 (98-107) meq/L Carbon Dioxide 22.4 (21.0-32.0) meq/L BUN 18 (7-18) mg/dL Creatinine 1.15 (0.60-1.30) mg/dL Calcium 8.7 (8.5-10.1) mg/dL AST 22 (15-37) U/L ALT 27 (12-78) U/L Alkaline Phosphatase 84 (45-117) U/L Total Protein 7.8 (6.4-8.2) g/dL Albumin 3.9 (3.4-5.0) g/dL Intake and Output 05/06/18 05/07/18 05/07/18 22:59 06:59 14:59 Other: Weight 120.202 kg EKG interpretations - EKG EKG results cardiology: WNL Milagrosi VTE Risk Assessment Caprini VTE Risk Assessment: Moderate/High Risk (score >= 2) (Due to possibility of pericardial effusion no prophylaxis will be started at this time) Caprini Risk Assessment Model: Point Value = 1 Point Value = 2 Point Value = 3 Point Value = 5 Age 41-60 Minor surgery BMI > 25 kg/m2 Swollen legs Varicose veins or History of unexplained or recurrent spontaneous Oral contraceptives or hormone replacement Sepsis (< 1 month) Serious lung disease, including pneumonia (< 1 month) Abnormal pulmonary function Acute myocardial infarction Congestive heart failure (< 1 month) History of inflammatory bowel disease Medical patient at bed rest Age 61-74 Arthroscopic surgery Major open surgery (> 45 min) Laparoscopic surgery (> 45 min) Malignancy Confined to bed (> 72 hours) Immobilizing plaster cast Central venous access Age >= 75 History of VTE Family history of VTE Factor V Leiden Prothrombin 16066C Lupus anticoagulant Anticardiolipin antibodies Elevated serum homocysteine Heparin-induced thrombocytopenia Other congenital or acquired thrombophilia Stroke (< 1 month) Elective arthroplasty Hip, pelvis, or leg fracture Acute spinal cord injury (< 1 month) Prophylaxis Regimen: Total Risk Factor Score Risk Level Prophylaxis Regimen 0-1 Low Early ambulation 2 Moderate Order ONE of the following: *Sequential Compression Device (SCD) *Heparin 5000 units SQ BID 3-4 Higher Order ONE of the following medications: *Heparin 5000 units SQ TID *Enoxaparin/Lovenox 40 mg SQ daily (WT < 150 kg, CrCl > 30 mL/min) *Enoxaparin/Lovenox 30 mg SQ daily (WT < 150 kg, CrCl > 10-29 mL/min) *Enoxaparin/Lovenox 30 mg SQ BID (WT < 150 kg, CrCl > 30 mL/min) AND/OR *Sequential Compression Device (SCD) 5 or more Highest Order ONE of the following medications: *Heparin 5000 units SQ TID (Preferred with Epidurals) *Enoxaparin/Lovenox 40 mg SQ daily (WT < 150 kg, CrCl > 30 mL/min) *Enoxaparin/Lovenox 30 mg SQ daily (WT < 150 kg, CrCl > 10-29 mL/min) *Enoxaparin/Lovenox 30 mg SQ BID (WT < 150 kg, CrCl > 30 mL/min) AND *Sequential Compression Device (SCD) Assessment and Plan - Plan This patient had an episode of pneumonia in November of this year which seems to have some persistent symptoms to the current time. He now presents with what appears to be pericarditis based on pleuritic chest pain and CT evidence of a pericardial effusion. He underwent exercise stress testing in November of this year which is reported to have been negative. His current presentation is not like his previous ischemic presentation and is entirely consistent with pericardial or pleural inflammation. As a result he will be ruled out using standard chest pain center protocol by lab and EKGs but further testing will be deferred in lieu of her recent negative ETT to follow-up by his yard hand. And with his primary care physician for further evaluation of his edema and vascular status. Code Status: Full code Discussed Condition With: Discussed situation and follow-up with both patient and Discharge Planning: Discharge to follow-up with primary care physician Dr. Alvarado with the suggestion for referral to pulmonology Dr. Raji Sandhu and vascular Dr. Delbert Barakat - Attending Attestation I attest that this patient meets diagnostic criteria for the evaluation treatment received at this time
[2018-05-07 13:16] VITALS: BP 152/75; PULSE 84; RESP 18; TEMP 98.8; O2SAT 94
[2018-05-07 13:27] LABS: Creatine Kinase 65 U/L (39-308)
--- NOTE | 2018-05-08 13:16 | ECG ---
Date Performed: 05/07/2018 Time Performed: 12:21:01 PTAGE: 73 years EKG: Sinus rhythm NORMAL ECG NO PREVIOUS TRACING DOCTOR: Andres Smart Interpretating Date/Time 05/08/2018 13:15:22
--- NOTE | 2018-05-08 13:16 | ECG ---
Date Performed: 05/07/2018 Time Performed: 09:48:03 PTAGE: 73 years EKG: Sinus rhythm NORMAL ECG PREVIOUS TRACING : 05/07/2018 04.02 DOCTOR: Andres Smart Interpretating Date/Time 05/08/2018 13:15:32
== END 2018-05-07 14:41 | disposition home or self-care (01) ==
LOC: NEPC 03:46 → NEDA 03:46 → NEPGCP 03:46 → NEDA 10:00 → NEPGCP 10:20
PROVIDERS: ADMIT Internal Medicine Interventional Cardiology; ATTEND Internal Medicine Interventional Cardiology
DX: R91.8 Other nonspecific abnormal finding of lung field; R07.9 Chest pain, unspecified; I25.10 Atherosclerotic heart disease of native coronary artery without angina pectoris; R94.31 Abnormal electrocardiogram [ECG] [EKG]; Z82.0 Family history of epilepsy and other diseases of the nervous system; Z95.5 Presence of coronary angioplasty implant and graft; Z87.01 Personal history of pneumonia (recurrent); I31.3 Pericardial effusion (noninflammatory); Z96.649 Presence of unspecified artificial hip joint; Z87.891 Personal history of nicotine dependence